=== PATIENT | female | born 1945 | race Caucasian/White ===

== ENCOUNTER 2016-10-16 21:14 | Emergency (ER) | payer OTHER ==
[~2016-10-16] VITALS: Ht 154.9 cm; Wt 69.4 kg
[~2016-10-16 21:14] MED LIST: ACT/15 PO; ASCO500T16 PO; ASPI81TA28 PO; CHOL400C7 PO; CITA20TA9 PO; FISHOIL PO; GLC/500 PO; GLIP1TAB61 PO; HYDR2.5C37 TOP; HYG/25 PO; LISI20TA3 PO; NITR0.4S UT; PRAV40TA2 PO; PROM25TA PO; SIME125C11 PO; TRAM-453 PO
[2016-10-16 21:15] VITALS: TEMP 36.9; Ht 154.9 cm; Wt 69.4 kg
--- NOTE | 2016-10-16 22:05 | EMERGENCY ROOM VISIT NOTE ---
History Report prepared by Trudy: Kyle Espitia Under the Supervision of: Dr. Vasiliy Duran D.O. First contact with patient: 21:55 Chief Complaint: HYPERGLYCEMIA Stated Complaint: SUGAR GOING UP AND DOWN Nursing Triage Summary: Patient states "I have been diabetic since the . I have been on Metformin 500mg twice a day for a few years. I am also taking Glimipride and Actos once a day. My sugars have been all over the place. I can't seem to keep them regulated. When my sugar is 90 or lower, my legs feel like jello." Sugars today: 339, 295, 213, 140, 108, 80, 78, 90, 131. History of Present Illness The patient is a 71 year old female with a history of Type II Diabetes who presents to the Emergency Room with complaints of waxing & waning hyperglycemia throughout the day. The patient has been having trouble controlling her BSG. The patient takes Metformin, Glimepiride, and Actos. She has been compliant with her medications. She states that her baseline BSG is 130-140. She was hypoglycemia at one point today and tried to bring it up with orange juice. Per family, the patient also had a BSG in the 300s today also. The patient denies any urinary symptoms. She has a history of UTI. Source of History: patient, family Onset: today Position: other (global) Quality: other (BSG) Timing: waxes/wanes Associated Symptoms: No urinary symptoms Review of Systems See HPI for pertinent positives and negatives. A total of ten systems were reviewed and were otherwise negative. Past Medical & Surgical Medical Problems: (1) CKD (chronic kidney disease) stage 3, GFR 30-59 ml/min (2) Diabetes mellitus, type II (3) Diverticulosis (4) Hyperlipemia (5) Hypertension Surgical Problems: (1) Status post cholecystectomy Family History Diabetes mellitus Hypertension Social History Smoking Status: Never Smoker Housing Status: lives with family Occupation Status: retired Current/Historical Medications Scheduled Ascorbic Acid (Ascorbic Acid), 500 MG PO DAILY Aspirin (Aspirin Ec), 81 MG PO DAILY Chlorthalidone (Hygroton), 25 MG PO DAILY Cholecalciferol (Vitamin D 400 Iu), 800 INTER.UNIT PO DAILY Citalopram Hydrobromide (Celexa), 20 MG PO DAILY Glimepiride (Glimepiride), 2 MG PO DAILY Lisinopril (Prinivil), 20 MG PO DAILY Metformin Hcl (Glucophage), 500 MG PO BIDM Pioglitazone Hcl (Actos), 15 MG PO DAILY Pravastatin Sodium (Pravastatin Sodium), 40 MG PO QPM Scheduled PRN Hydrocortisone 2.5% (Rectal) (Anusol-Hc 2.5%), 1 APPL TOP UD PRN for Hemorrhoids Nitroglycerin (Nitrostat), 0.4 MG UT UD PRN for Chest Pain Tramadol Hcl (Ultram), 50 MG PO Q6H PRN for Pain Allergies Coded Allergies: No Known Allergies (Unverified , 10/16/16) Physical Exam Vital Signs Date Time Temp Pulse Resp B/P Pulse Ox O2 Delivery O2 Flow Rate FiO2 10/16/16 21:15 36.9 79 175/79 Room Air Physical Exam GENERAL: Awake, alert, well-appearing, in no distress HENT: Normocephalic, atraumatic. Oropharynx unremarkable. EYES: Normal conjunctiva. Sclera non-icteric. NECK: Supple. No nuchal rigidity. FROM. No JVD. RESPIRATORY: Clear to auscultation. CARDIAC: Regular rate, normal rhythm. Extremities warm and well perfused. Pulses equal. ABDOMEN: Soft, non-distended. No tenderness to palpation. No rebound or guarding. No masses. RECTAL: Deferred. MUSCULOSKELETAL: Chest examination reveals no tenderness. The back is symmetrical on inspection without obvious abnormality. There is no CVA tenderness to palpation. No joint edema. LOWER EXTREMITIES: Calves are equal size bilaterally and non-tender. No edema. No discoloration. NEURO: Normal sensorium. No sensory or motor deficits noted. SKIN: No rash or jaundice noted. Medical Decision & Procedures Laboratory Results 10/16/16 21:38 Red Blood Count 4.18, Mean Corpuscular Volume 90.0, Mean Corpuscular Hemoglobin 30.4, Mean Corpuscular Hemoglobin Concent 33.8, Mean Platelet Volume 10.4, Neutrophils (%) (Auto) 61.6, Lymphocytes (%) (Auto) 29.2, Monocytes (%) (Auto) 5.5, Eosinophils (%) (Auto) 3.1, Basophils (%) (Auto) 0.3, Neutrophils # (Auto) 3.59, Lymphocytes # (Auto) 1.70, Monocytes # (Auto) 0.32, Eosinophils # (Auto) 0.18, Basophils # (Auto) 0.02 10/16/16 21:38 Test 10/16/16 21:28 10/16/16 21:38 Bedside Glucose 131 mg/dl (70-90) White Blood Count 5.83 K/uL (4.8-10.8) Red Blood Count 4.18 M/uL (4.2-5.4) Hemoglobin 12.7 g/dL (12.0-16.0) Hematocrit 37.6 % (37-47) Mean Corpuscular Volume 90.0 fL (80-100) Mean Corpuscular Hemoglobin 30.4 pg (25-34) Mean Corpuscular Hemoglobin Concent 33.8 g/dl (32-36) Platelet Count 190 K/uL (130-400) Mean Platelet Volume 10.4 fL (7.4-10.4) Neutrophils (%) (Auto) 61.6 % Lymphocytes (%) (Auto) 29.2 % Monocytes (%) (Auto) 5.5 % Eosinophils (%) (Auto) 3.1 % Basophils (%) (Auto) 0.3 % Neutrophils # (Auto) 3.59 K/uL (1.4-6.5) Lymphocytes # (Auto) 1.70 K/uL (1.2-3.4) Monocytes # (Auto) 0.32 K/uL (0.11-0.59) Eosinophils # (Auto) 0.18 K/uL (0-0.5) Basophils # (Auto) 0.02 K/uL (0-0.2) RDW Standard Deviation 43.3 fL (36.4-46.3) RDW Coefficient of Variation 13.3 % (11.5-14.5) Immature Granulocyte % (Auto) 0.3 % Immature Granulocyte # (Auto) 0.02 K/uL (0.00-0.02) Anion Gap 12.0 mmol/L (3-11) Est Creatinine Clear Calc Drug Dose 34.8 ml/min Estimated GFR () 47.5 Estimated GFR (Non- 41.0 BUN/Creatinine Ratio 22.8 (10-20) Calcium Level 9.7 mg/dl (8.5-10.1) Total Bilirubin 0.3 mg/dl (0.2-1) Aspartate Amino Transf (AST/SGOT) 33 U/L (15-37) Alanine Aminotransferase (ALT/SGPT) 42 U/L (12-78) Alkaline Phosphatase 62 U/L (45-117) Total Protein 7.1 gm/dl (6.4-8.2) Albumin 4.0 gm/dl (3.4-5.0) Globulin 3.1 gm/dl (2.5-4.0) Albumin/Globulin Ratio 1.3 (0.9-2) Laboratory results reviewed by me ED Course 2200: The patient was evaluated in room C8. A complete history and physical exam was performed. 2319: Reassessed the patient. Discussed the discharge instructions. He verbalized understanding. The patient will be prepared for discharge. Medical Decision Differential diagnosis includes hyperglycemia, hypoglycemia, medication reaction , renal insufficiency, UTI. Repeat examination 2319 patient is resting in no distress nonfocal patient's blood sugar is 1:30 her renal function is normal. I discussed the workup with the patient and patient's family at bedside. There is no evidence of urinary tract infection. Patient needs follow-up with primary care physician for continued monitoring of her blood glucose Impression Primary Impression: Hyperglycemia Scribe Attestation The scribe's documentation has been prepared under my direction and personally reviewed by me in its entirety. I confirm that the note above accurately reflects all work, treatment, procedures, and medical decision making performed by me. Departure Information Dispostion Home / Self-Care Referrals Glo Car M.D. (PCP) Forms HOME CARE DOCUMENTATION FORM, IMPORTANT VISIT INFORMATION Patient Instructions Hyperglycemia, My [facility]
[2016-10-16 22:10] LABS: BASO % 0.3 %; BASO ABS # 0.02 K/uL (0-0.2); COMPLETE YES; EOS % 3.1 %; HEMATOCRIT 37.6 % (37-47); IG% 0.3 %; LYMPH % 29.2 %; MEAN CORPUSCULAR HEMOGLOBIN 30.4 pg (25-34); MEAN CORPUSCULAR HGB CONC 33.8 g/dl (32-36); MEAN PLATELET VOLUME 10.4 fL (7.4-10.4); MONO % 5.5 %; NEUT % 61.6 %; PLATELET COUNT 190 K/uL (130-400); RED BLOOD COUNT 4.18 M/uL (4.2-5.4); WHITE BLOOD COUNT 5.83 K/uL (4.8-10.8)
[2016-10-16] MEDS ORDERED: GLIM2TAB2 PO (22:20)
[2016-10-16 22:34] LABS: BUN/CREATININE RATIO 22.8 (10-20); CREATININE 1.3 mg/dl (0.60-1.20); POTASSIUM 4.2 mmol/L (3.5-5.1)
[2016-10-16 22:36] LABS: ALB/GLOB RATIO 1.3 (0.9-2)
[2016-10-16 22:44] LABS: CALCIUM 9.7 mg/dl (8.5-10.1)
[2016-10-16 23:23] VITALS: BP 107/69; PULSE 75; O2SAT 98
== END 2016-10-16 23:42 | disposition home or self-care (01) ==
LOC: C.EDB 21:14 → C.EDC 23:42
DX: E11.9 Type 2 diabetes mellitus without complications (principal); Z87.440 Personal history of urinary (tract) infections; N18.3 Chronic kidney disease, stage 3 (moderate); I12.9 Hypertensive chronic kidney disease with stage 1 through stage 4 chronic kidney disease, or unspecified chronic kidney disease; E78.5 Hyperlipidemia, unspecified; Z90.49 Acquired absence of other specified parts of digestive tract; Z83.3 Family history of diabetes mellitus; Z82.49 Family history of ischemic heart disease and other diseases of the circulatory system; Z79.82 Long term (current) use of aspirin; Z79.899 Other long term (current) drug therapy